=== PATIENT | female | born 1945 | race Hispanic/Latino ===

== ENCOUNTER 2021-05-19 15:47 | Emergency (ER) | payer MEDICARE, OTHER ==
[2021-05-19 16:41] VITALS: BP 141/71
--- NOTE | 2021-05-19 17:24 | Emergency Department Report ---
ED Medical Clearance HPI - General Chief complaint: Fall Stated complaint: [place] [facility] [facility] (FELL BACKWARDS) Time Seen by Provider: 05/19/21 17:21 Source: patient, family Mode of arrival: Wheelchair - History of Present Illness Initial comments: Patient presented for medical clearance. She had been seen at [facility] yesterday. She wanted to smoke. She left and while she was gone, she fell. She struck her head. There is no loss of consciousness. She sustained abrasion to the right elbow. Patient had no complaints. She went back to [facility] today and they refused to take her until she was seen for medical clearance. Her family brought her here. Patient has no complaints. She has no neck pain or back pain. She denies numbness or tingling in the arms or legs. There is no incontinence of bowel or bladder. She has no new symptomatology. Again, her head and neck do not hurt. The only reason she came in was for medical clearance to go back to [facility]. ED Review of Systems ROS: Stated complaint: [place] [facility] (FELL BACKWARDS) Other details as noted in HPI Comment: All other systems reviewed and negative Constitutional: denies: fever Eyes: denies: vision change ENT: denies: throat pain Respiratory: denies: cough Cardiovascular: denies: chest pain Endocrine: denies: increased thirst Gastrointestinal: denies: abdominal pain Genitourinary: denies: dysuria Musculoskeletal: denies: back pain Skin: denies: rash Neurological: denies: headache Hematological/Lymphatic: denies: easy bruising ED Past Medical Hx - Past Medical History Previous Medical History?: Yes Hx Pulmonary Embolism: No Hx COPD: Yes - Surgical History Hx Appendectomy: Yes Additional Surgical History: hyst, left hip replacement ED Physical Exam - General Limitations: No Limitations General appearance: alert, in no apparent distress - Head Head exam: Present: atraumatic, normocephalic, normal inspection - Eye Eye exam: Present: normal appearance, PERRL, EOMI - ENT ENT exam: Present: normal exam, normal orophraynx - Neck Neck exam: Present: full ROM. Absent: tenderness, meningismus - Respiratory Respiratory exam: Present: normal lung sounds bilaterally, respiratory distress - Cardiovascular Cardiovascular Exam: Present: regular rate, normal rhythm - GI/Abdominal GI/Abdominal exam: Present: soft. Absent: tenderness - Extremities Exam Extremities exam: Present: pedal edema (Bilateral) - Back Exam Back exam: Absent: CVA tenderness (R), CVA tenderness (L) - Neurological Exam Neurological exam: Present: alert, oriented X3, reflexes normal. Absent: motor sensory deficit - Psychiatric Psychiatric exam: Present: normal affect, normal mood - Skin Skin exam: Present: warm, dry ED Course Vital Signs 05/19/21 16:39 Temperature 98.0 F Pulse Rate 81 Respiratory 18 Rate Blood Pressure 141/71 O2 Sat by Pulse 97 Oximetry - Reevaluation(s) Reevaluation #1: 05/19/21 17:27 Patient was seen and medically cleared ED Medical Decision Making - Medical Decision Making Patient presents for medical clearance from a fall. There is no traumatic injury that would require admission. She has a superficial abrasion to the right elbow but no other evidence of injury. She is not altered. She is not anticoagulated. I do not believe CT is indicated. She has no neck tenderness on exam. There is no neurologic deficit. I am not concerned for cervical cord injury. ED Disposition Clinical Impression: Medical clearance for psychiatric admission, Elbow abrasion, non-infected Fall Qualifiers: Encounter type: initial encounter Qualified Code(s): W19.XXXA - Unspecified fall, initial encounter Disposition: [facility] Is pt being admited?: No Does the pt Need Aspirin: No Condition: Stable Additional Instructions: Drink plenty of water. Go to [facility] for follow-up.
== END 2021-05-19 18:51 ==
LOC: ED 15:47
DX: S50.311A Abrasion of right elbow, initial encounter (principal); Z13.30 Encounter for screening examination for mental health and behavioral disorders, unspecified; J44.9 Chronic obstructive pulmonary disease, unspecified; Z79.899 Other long term (current) drug therapy; W18.39XA Other fall on same level, initial encounter; Y93.89 Activity, other specified; Y92.89 Other specified places as the place of occurrence of the external cause; Y99.8 Other external cause status
CPT/HCPCS: 99284